=== PATIENT | female | born 1985 | race Caucasian/White ===

== ENCOUNTER 2017-10-06 22:00 | Emergency (ER) | payer OTHER ==
[2017-10-06] MEDS: KETOROLAC 60 MG/2 ML INJ. IM (23:41)
== END 2017-10-06 23:57 | disposition home or self-care (01) ==
LOC: ER 22:00
DX: S93.602A Unspecified sprain of left foot, initial encounter (principal); E03.9 Hypothyroidism, unspecified; W00.0XXA Fall on same level due to ice and snow, initial encounter; Y93.89 Activity, other specified; Y99.8 Other external cause status; Y92.89 Other specified places as the place of occurrence of the external cause
CPT/HCPCS: 73630; 96372; 99284-25; J1885